=== PATIENT | female | born 1985 | race Caucasian/White ===

== ENCOUNTER 2018-05-07 00:30 | Emergency (ER) | payer BC ==
[~2018-05-07] VITALS: Ht 160 cm; Wt 114.4 kg
[~2018-05-07 00:30] MED LIST: ACET-9645 PO
[2018-05-07 00:37] VITALS: BP 112/73
[2018-05-07] MEDS: KETOROLAC 60 MG/2 ML VIAL IM ONE (01:05)
[2018-05-07] MEDS: ONDANSETRON 4 MG ODT PO ONE (01:06)
[2018-05-07 01:16] LABS: BASOPHILS % (AUTO) 0.2 % (0.0-2.0); EOSINOPHILS # (AUTO) 0.2 K/uL (0-0.4); EOSINOPHILS % (AUTO) 1.5 % (0.0-4.0); HEMATOCRIT 42.2 % (36-48); HEMOGLOBIN 13.5 g/dL (12.0-16.0); LYMPHOCYTES # (AUTO) 1.6 K/uL (2.5-16.5); MEAN CORPUSCULAR HEMOGLOBIN 27 pg (27-31); MEAN CORPUSCULAR HGB CONC 32 g/dL (33-37); MEAN CORPUSCULAR VOLUME 85.2 fL (80-94); MONOCYTES # (AUTO) 0.4 K/uL (0.8-1.0); MONOCYTES % (AUTO) 4.2 % (1.7-9.3); NEUTROPHILS # (AUTO) 8.2 K/uL (1.8-7.7); NEUTROPHILS % (AUTO) 79.1 % (42.2-75.2); PLATELET COUNT (AUTO) 275 K/uL (140-450); RED BLOOD CELL COUNT(AUTO) 4.95 MIL/uL (4.20-5.40); RED CELL DISTRIBUTION WIDTH 15.3 % (11.6-13.7); WHITE BLOOD COUNT (AUTO) 10.4 K/uL (4.8-10.8)
[2018-05-07 01:24] LABS: APPEARANCE,URINE SL CLOUDY (CLEAR); BILIRUBIN,URINE NEGATIVE (NEGATIVE); BLOOD, URINE 2+ (NEGATIVE); COLOR,URINE YELLOW (YELLOW); LEUKOCYTE ESTERASE ,URINE NEGATIVE (NEGATIVE); NITRITE, URINE NEGATIVE (NEGATIVE); UGLUCOSE NEGATIVE (NEGATIVE)
[2018-05-07 01:25] LABS: ANION GAP 12.4 (8-16); CARBON DIOXIDE 25.4 mmol/L (21-32); CREATININE 0.7 mg/dL (0.6-1.3); POTASSIUM 3.8 mmol/L (3.5-5.1)
[2018-05-07 01:31] LABS: ALBUMIN 3.5 g/dL (3.4-5.0); TOTAL BILIRUBIN 0.4 mg/dL (0.0-1.0)
[2018-05-07 01:50] LABS: RBC,URINE 0-5 (RARE) /HPF (0-5); WBC,URINE 0-5 (RARE) /HPF (0-5)
[2018-05-07 02:13] VITALS: BP 125/91
== END 2018-05-07 02:11 | disposition home or self-care (01) ==
LOC: MED 00:30
DX: R10.32 Left lower quadrant pain (principal); R19.7 Diarrhea, unspecified; R11.0 Nausea
CPT/HCPCS: 36415; 80053; 81001; 81025; 83690; 85025; 87086; 96372; 99284; J1885; S0119

== ENCOUNTER 2019-08-11 08:52 | Emergency (ER) | payer BC ==
[~2019-08-11] VITALS: Ht 161.3 cm; Wt 110.7 kg
[2019-08-11 08:53] VITALS: BP 113/73
--- NOTE | 2019-08-11 09:04 | NUR ---
Patient ambulated to bed 11.
--- NOTE | 2019-08-11 09:10 | NUR ---
34F c/o left back pain x 2 wks radiating down the left leg. Hurts more at night while lying still. Pain relieved by walking. A week ago PCP dx pt with UTI; RX of macrobid, pt still taking the abx now. States dysuria, urgency, frequency. Denies fever. PATIENT STATES PAIN OF 4/10 AT THIS TIME; VSS; PATIENT POSITIONED FOR COMFORT; HOB ELEVATED; BEDRAILS UP X1; BED DOWN. ER MD MADE AWARE OF PT STATUS.
[2019-08-11 09:27] VITALS: BP 109/70
--- NOTE | 2019-08-11 09:27 | NUR ---
Patient discharged with v/s stable by Dr. Loera. Rx of Pyridium and Macrobid given.
== END 2019-08-11 09:26 | disposition home or self-care (01) ==
LOC: MED 08:52
DX: N39.0 Urinary tract infection, site not specified (principal); E11.9 Type 2 diabetes mellitus without complications; Z90.49 Acquired absence of other specified parts of digestive tract; Z79.899 Other long term (current) drug therapy
CPT/HCPCS: 81002; 81025; 99283